=== PATIENT | female | born 1935 | race Caucasian/White ===

== ENCOUNTER 2019-01-19 19:26 | Observation (INO) | payer MEDICARE, BC ==
[~2019-01-19] VITALS: Ht 157.5 cm; Wt 119.7 kg
[~2019-01-19 19:26] MED LIST: ALENDRONATE SOD70 MG PO; BAYER ASPIRIN325 MG PO; CALCIUM 600+D T1 TA1 PO; COREG6.25 MG PO; FEXOFENADINE H180 MG PO; FUROSEMIDE40 MG PO; GLUCOPHAGE1000 MG PO; GLYBURIDE5 M1 PO; KLOR-CON M2020 MEQ PO; LISINOPRIL10 MG PO; MULTIPLE VITAMI1 TA1 PO; ZOCOR80 MG PO
[2019-01-19 20:53] LABS: BASOPHILS 0.3 % (0-2); EOSINOPHILS 3.1 % (0-7); LYMPHOCYTES 18.5 % (15-50); MCH 31.3 pg (26.0-34.0); MCV 94.8 fL (80.0-100.0); MEAN PLATELET VOLUME 10.6 fL (7.4-10.4); MONOCYTES 8.6 % (2-11); NEUTROPHILS 68.5 % (40-80); PLATELET COUNT 243 10x3/uL (130-400); RBC 2.11 10x6/uL (4.00-5.40); RDW 14.3 % (11.5-14.5); WBC 14.8 10x3/uL (4.8-10.8)
[2019-01-19 20:58] LABS: HEMOGLOBIN 6.6 g/dL (12-16)
[2019-01-19 21:08] LABS: ALBUMIN 2.8 g/dL (3.4-5.0); ALKALINE PHOSPHATASE 36 U/L (46-116); ALT (SGPT) 12 U/L (10-68); BILIRUBIN - TOTAL 0.15 mg/dL (0.2-1.3); CALC OSMOLALITY 313 mosm/kg (275-300); CALCIUM 9.2 mg/dL (8.5-10.1); CARBON DIOXIDE 28.8 mmol/L (21.0-32.0); CHLORIDE - SERUM 100 mmol/L (98-107); CREATININE - SERUM 2.1 mg/dL (0.6-1.3); GLUCOSE 113 mg/dL (74-106); POTASSIUM - SERUM 4.7 mmol/L (3.5-5.1); PRO BNP 767 pg/mL (0-450); PROTEIN - SERUM 6.5 g/dL (6.4-8.2); SODIUM 138 mmol/L (136-145); UREA NITROGEN 116 mg/dL (7-18); eGFR NON AFRICAN AMERICAN 24 mL/min (90-120)
[2019-01-19 21:15] LABS: TROPONIN-I < 0.017 ng/mL (0.000-0.060)
[2019-01-19 22:05] LABS: BASOPHILS 0.2 % (0-2); EOSINOPHILS 3.2 % (0-7); IMMATURE GRANULOCYTES 0.8 % (0-5); LYMPHOCYTES 17.2 % (15-50); MCH 30.9 pg (26.0-34.0); MCHC 32.8 g/dL (31.0-37.0); MCV 94.2 fL (80.0-100.0); MEAN PLATELET VOLUME 10.4 fL (7.4-10.4); MONOCYTES 8.8 % (2-11); NEUTROPHILS 69.8 % (40-80); PLATELET COUNT 228 10x3/uL (130-400); RDW 14.2 % (11.5-14.5); WBC 13.3 10x3/uL (4.8-10.8)
[2019-01-19 22:09] LABS: INR 1.08 (0.85-1.17); PROTIME 13.5 SECONDS (11.6-15.0)
[2019-01-19 22:12] LABS: RBC 1.91 10x6/uL (4.00-5.40)
[2019-01-19 22:13] LABS: HEMOGLOBIN 5.9 g/dL (12-16)
[2019-01-19] MEDS ORDERED: LASIX80 MG PO (23:46)
[2019-01-19 23:54] VITALS: BP 103/36; Ht 157.5 cm; Wt 119.7 kg
[2019-01-20] VITALS: BP 103/21
--- NOTE | 2019-01-20 00:27 | NUR ---
RECIEVED FROM ER. ARRIVED TO FLOOR ON STRETCHER. BUN AND CREATININE REPORTED TO THIS NURSE 116 AND 1.21. NOTIFIED CECILIA MUIR WITH NEW ORDER FOR CBC AND CMP. RECIEVED CRITICAL HGB OF 6.6. NOTIFIED CECILIA MUIR WITH NEW ORDER TO REPEAT D/T DIFFERENCE FROM [facility] [place]. REPEATED AND HGB 5.9. NOTIFIED INDOOR PLANT TECHNICIAN WITH ORDERS FOR CROSS AND TYPE GIVE 2 UNITS OF BLOOD AND REPEAAT HGB. IF LESS THAN 8 GIVE ANOTHER UNIT. ALSO TO GET AM LABS OF CBC, CMP,MAGNESIUM. DO OCCULT STOOL TONIGHT. OCULT STOOL POSITIVE. CECILIA MUIR CALLED BACK WITH ORDERS TO BOLUS 2 LITERS OF NS AND TO TELL LAB TO KEEP 3 UNITS OF PRBC ON HAND. AUTOMOBILE MECHANIC ASSISTANT AWARE AND STATED PT WOULD HAVE TO BE TRANSFERED TO ANOTHER HOSPITAL. [facility] NOTIFIED OF SITUATION. ASSESSMENTS COMPLETED.
[2019-01-20 00:56] LABS: HEMATOCRIT 18.9 % (36.0-48.0); HEMOGLOBIN 6.1 g/dL (12-16)
[2019-01-20 03:11] LABS: BASOPHILS 0.2 % (0-2); EOSINOPHILS 3.3 % (0-7); HEMATOCRIT 21.8 % (36.0-48.0); IMMATURE GRANULOCYTES 0.8 % (0-5); MCH 29.8 pg (26.0-34.0); MCHC 32.6 g/dL (31.0-37.0); MEAN PLATELET VOLUME 10.5 fL (7.4-10.4); NEUTROPHILS 69.7 % (40-80); PLATELET COUNT 183 10x3/uL (130-400); RDW 14.8 % (11.5-14.5); WBC 12.1 10x3/uL (4.8-10.8)
[2019-01-20 03:16] LABS: HEMOGLOBIN 7.1 g/dL (12-16); MCV 91.6 fL (80.0-100.0); RBC 2.38 10x6/uL (4.00-5.40)
[2019-01-20 03:32] LABS: ALBUMIN 2.3 g/dL (3.4-5.0); ANION GAP 11.7 mmol/L (8-16); BILIRUBIN - TOTAL 0.3 mg/dL (0.2-1.3); CALCIUM 8.5 mg/dL (8.5-10.1); CARBON DIOXIDE 28.6 mmol/L (21.0-32.0); CREATININE - SERUM 2.1 mg/dL (0.6-1.3); MAGNESIUM - SERUM 2.3 mg/dL (1.8-2.4); POTASSIUM - SERUM 4.3 mmol/L (3.5-5.1); PROTEIN - SERUM 5.6 g/dL (6.4-8.2); TROPONIN-I 0.016 ng/mL (0.000-0.060)
--- NOTE | 2019-01-20 04:28 | NUR ---
PAZ BRANCH RN IN ER. AT 0019 [facility]ACH AT [facility] CALLED TO ARRANGE GI TRANSPORT. 0115 CALL BACK TO [facility]-PLACEMENT NOT FOUND YET. 0130 SPOKE TO TABATHA AT [facility]. 0221 TABATHA FROM [facility] CALLED WITH REQUEST FOR PT FACESHEET- FAXED REQUESTED. 0245 TABATHA FROM [facility] RETURNED CALL. HOSPITA WILL NOT ACCEPT PATIENT UNTIL AFTER 7AM. 0255 STAT H AND H ORDERED. 0305 CALL TO [facility] TO ATTEMPT GI TRANSFER. SPOKE TO ROSANGELA AT [facility]. DR. GUAJARDO SPOKE WITH DR. SANDERS WILL ACCEPT PT. 0350 ZACH FROM TRANSFER CENTER CALLED WITH ICU BED 13 AT [facility] AND PHONE NUMBER TO CALL REPORT TO. 0408 FACE SHEET FAXED TO [facility]. 0440 EMS HERE AND LEAVING BUILDING WITH PT.
--- NOTE | 2019-01-20 04:53 | NUR ---
EMS HERE TO TRANSPORT. IV TO LEFT THUMB WITH PRBC INFUSING. LEFT AC WITH NS AND PROTONIX INFUSING AT 10CC/HR. PT ALERT AND ORIENTED X4. ABLE TO TRANSFER SELF TO STRETCHER. ALL PERSONAL BELONGING TAKEN. WILL CALL [facility] AND NOTIFY OF TRANSFER AND ROOM NUMBER.
--- NOTE | 2019-01-20 04:57 | NUR ---
[facility] NOTIFIED OF TRANSFER.
--- NOTE | 2019-01-21 08:48 | MORECARE ---
CASE MANAGEMENT DISCHARGE SUMMARY PATIENT: ELOY CRAWFORD UNIT: [id number] ADM DATE: 01/19/19 AGE: 83 : 35 SEX: F ROOM/BED: D.0925 AUTHOR: YAYO VILLANUEVA PHYSICIAN: REFERRING PHYSICIAN: MAITE VIGIL MD DATE OF SERVICE: 01/21/19 Discharge Plan Patient Name: ELO[facility] CRAWFORD [facility] 1935 Planned Disposition: Acute Care Hospital Anticipated Discharge Date: 01/20/19 Discharge Date: 01/20/2019 Expected LOS: 1 Initial Reviewer: [email or web address] Initial Review Date: 01/21/2019 Generated: 01/21/19 9:47 am Patient Name: ELOY CRAWFORD Page [id number] at 0848 All edits/amendments must be made on the electronic document DICTATION DATE: 01/21/1947 REHABILITATION SUPERVISOR: YONY 01/21/1947 RPT#: [id number] DC DATE:01/20/19 STATUS: DIS IN [facility] [address] [place] [address] END OF REPORT
== END 2019-01-20 04:40 | disposition short-term general hospital (02) ==
LOC: D.ER 19:26 → OBSVTIME 19:41 → D.M2 19:41
PROVIDERS: Family Medicine; ADMIT Family Medicine; ATTEND Family Medicine
DX: I25.10 Atherosclerotic heart disease of native coronary artery without angina pectoris (principal); E11.9 Type 2 diabetes mellitus without complications; N17.9 Acute kidney failure, unspecified; R07.9 Chest pain, unspecified; I24.9 Acute ischemic heart disease, unspecified

== ENCOUNTER → 2019-07-30 07:57 | Outpatient (CLI) | payer MEDICARE, BC ==
[2019-01-19 23:54] VITALS: BMI 48.2
[~2019-07-30 07:57] MED LIST changes: +LASIX80 MG PO
== END | disposition home or self-care (01) ==
LOC: D.HCCECHO 07:57
PROVIDERS: ATTEND Internal Medicine Interventional Cardiology
DX: I10 Essential (primary) hypertension (principal)